=== PATIENT | male | born 1960 | race African-American/Black ===

== ENCOUNTER 2019-05-11 17:30 | Emergency (ER) | payer MEDICAID, OTHER ==
[~2019-05-11] VITALS: Ht 172.7 cm; Wt 91.0 kg
[~2019-05-11 17:30] MED LIST: LOSA25TA3
[2019-05-11] MEDS ORDERED: LISINOPRIL 5MG TABLET PO ONE (18:30)
[2019-05-11] MEDS ORDERED: METFORMIN HCL 500MG TABLET PO ONE (18:30)
[2019-05-11 19:38] VITALS: BP 145/90
== END 2019-05-11 21:15 | disposition home or self-care (01) ==
LOC: ER 18:43
DX: F41.9 Anxiety disorder, unspecified (principal); F17.210 Nicotine dependence, cigarettes, uncomplicated; E11.9 Type 2 diabetes mellitus without complications; I10 Essential (primary) hypertension; F12.10 Cannabis abuse, uncomplicated; F17.200 Nicotine dependence, unspecified, uncomplicated; Z79.899 Other long term (current) drug therapy
CPT/HCPCS: 82962; 93005; 99283; 99406